=== PATIENT | female | born 1995 | race Caucasian/White ===

== ENCOUNTER 2021-11-29 15:35 | Emergency (ER) | payer BC, OTHER ==
[~2021-11-29] VITALS: Ht 162.6 cm; Wt 2.4 kg
[2021-11-29 16:36] VITALS: BP 121/70
== END 2021-11-29 16:47 | disposition home or self-care (01) ==
LOC: ER 15:35
DX: S01.01XA Laceration without foreign body of scalp, initial encounter (principal); W22.8XXA Striking against or struck by other objects, initial encounter; Y93.89 Activity, other specified; Y92.89 Other specified places as the place of occurrence of the external cause; Y99.8 Other external cause status
CPT/HCPCS: 12001